=== PATIENT | male | born 1980 | race Caucasian/White ===

== ENCOUNTER 2024-03-28 10:31 | Inpatient (IN) | payer OTHER ==
[2024-03-28 11:04] VITALS: BMI 17.6
[2024-03-28] MEDS ORDERED: IBUPROFEN 600 MG TABLET (FP) PO PRN (11:36)
[2024-03-28] MEDS ORDERED: NALOXONE (NARCAN) HCL 4 MG/0.1 ML SPRAY NS PRN (11:36)
[2024-03-28] MEDS ORDERED: MAG HYDROX/AL HYDROX/SIMETH 30 ML UNIT-DOSE CUP PO PRN (11:36)
[2024-03-28] MEDS ORDERED: BENZOCAINE/MENTHOL (CHLORASEPTIC ) LOZENGE MM PRN (11:36)
[2024-03-28] MEDS ORDERED: POLYETHYLENE GLYCOL (HEALTHYLAX) 3350 17 GM PACKET PO PRN (11:36)
[2024-03-28] MEDS ORDERED: MAGNESIUM HYDROX 2400MG/30ML ORAL SUSPENSION 30 ML CUP PO PRN (11:36)
[2024-03-28] MEDS ORDERED: BENZONATATE 200 MG CAPSULE PO PRN (11:36)
[2024-03-28] MEDS ORDERED: guaiFENesin 600 MG TABLET.ER (FP) PO PRN (11:36)
[2024-03-28] MEDS ORDERED: IBUPROFEN 400 MG TABLET (FP) PO PRN (11:36)
[2024-03-28] MEDS ORDERED: amLODIPine BESYLATE 10 MG TABLET (FP) PO SCH (13:15)
[2024-03-28] MEDS: cloNIDine HCL 0.1 MG TABLET PO SCH (13:20)
[2024-03-28] MEDS: MELATONIN 5 MG TABLETS PO SCH (22:11)
[2024-03-28] MEDS: THIAMINE 100 MG TABLET PO SCH (22:11)
[2024-03-28] MEDS: METHOCARBAMOL 500 MG TABLET PO PRN (22:11)
[2024-03-29] MEDS: methaDONE HCL 40 MG DISPERSABLE TABLET PO SCH (05:56)
[2024-03-29] MEDS: methaDONE HCL 10 MG TABLET PO ONE (09:30)
[2024-03-29] MEDS: PRENATAL VITAMINS W/ FOLIC ACID TABLET (FP) PO SCH (09:31)
[2024-03-29 11:12] LABS: HEMATOCRIT 37.6 % (35.4-49); HEMOGLOBIN 12.7 GM/dL (11.7-16.9); MCH 29.5 pg (25.7-33.7); MCHC 33.7 g/dl (32.0-35.9); MEAN CELL VOLUME 87.6 fl (80-96); MEAN PLT VOLUME 9.2 fl (7.5-11.1); PLATELET COUNT 201 10^3/uL (134-434); RBC 4.29 M/mm3 (4.00-5.60); RDW 13.4 % (11.9-15.9); WHITE BLOOD COUNT 5.6 K/mm3 (4.0-10.0)
[2024-03-29 11:33] LABS: ALBUMIN 3.5 g/dl (3.4-5.0); BLOOD UREA NITROGEN 15.2 mg/dL (7-18)
[2024-03-29 11:38] LABS: BILIRUBIN,TOTAL 0.3 mg/dL (0.2-1); TOT PROT 6.1 g/dl (6.4-8.2)
[2024-03-29] MEDS: hydrOXYzine PAMOATE 25 MG CAPSULE (FP) PO PRN (18:35)
[2024-03-29] MEDS: ACETAMINOPHEN 325 MG TABLET (FP) PO PRN (22:18)
[2024-03-30] MEDS: ONDANSETRON *ODT* 4 MG TABLET SL PRN (02:28)
[2024-03-30] MEDS: BISMUTH SUBSALICYLATE 524 MG/30 ML PO PRN (05:52)
[2024-03-30] MEDS ORDERED: LOPERAMIDE HCL 2 MG CAPSULE PO PRN (09:12)
[2024-03-30] MEDS: LOPERAMIDE HCL 2 MG CAPSULE PO PRN (09:19)
[2024-03-30] MEDS: LOPERAMIDE HCL 2 MG CAPSULE PO ONE (09:28)
[2024-03-30] MEDS: cloNIDine HCL 0.1 MG TABLET PO PRN (17:16)
[2024-03-30] MEDS: NICOTINE POLACRILEX 4 MG LOZENGE BC PRN (18:13)
[2024-03-31] MEDS: methaDONE HCL 10 MG TABLET PO ONE (09:55)
[2024-03-31] MEDS ORDERED: BENZOCAINE 20 % GEL TUBE MM PRN (11:30)
[2024-03-31] MEDS: hydrOXYzine PAMOATE 25 MG CAPSULE (FP) PO PRN (12:21)
[2024-04-01] MEDS: DICYCLOMINE HCL 10 MG CAPSULE PO PRN (17:06)
[2024-04-01] MEDS: SUVOREXANT 10 MG TABLET PO PRN (22:06)
[2024-04-02 09:13] VITALS: BP 140/83; PULSE 65; RESP 17; TEMP 98.1
[2024-04-02] MEDS: methaDONE HCL 10 MG TABLET PO ONE (09:45)
[2024-04-02] MEDS: NALOXONE (NYS OPIOID OVERDOSE PROGRAM) 4 MG/0.1 ML SPRAY NS SCH (09:45)
== END 2024-04-02 09:58 | disposition home or self-care (01) | DRG 773 ==
LOC: YASAS 10:31 → Y6N 12:47
PROVIDERS: ADMIT Allergy & Immunology; ATTEND Surgery
PROC: HZ2ZZZZ Detoxification Services for Substance Abuse Treatment (ICD-10-PCS; principal; 2024-03-28)
DX: F11.23 Opioid dependence with withdrawal (principal); F14.20 Cocaine dependence, uncomplicated; F17.210 Nicotine dependence, cigarettes, uncomplicated; F19.282 Other psychoactive substance dependence with psychoactive substance-induced sleep disorder; F41.9 Anxiety disorder, unspecified; F32.A Depression, unspecified; R03.0 Elevated blood-pressure reading, without diagnosis of hypertension
CPT/HCPCS: 36415; 80053; 80307; 85027; 86780; 93005; 93010; Q0162